=== PATIENT | female | born 1990 ===

== ENCOUNTER 2021-08-26 08:59 | Emergency (ER) | payer OTHER ==
[2021-08-26 11:28] LABS: RED BLOOD COUNT 4.98 M/UL (4.00-5.10); WHITE BLOOD COUNT 10.2 K/UL (4.5-11.0)
[2021-08-26 11:56] LABS: BUN/CREATININE RATIO 9 (0-10)
[2021-08-26] MEDS ORDERED: ZOFRAN ODT 4 MG4 MG SL (12:23)
== END 2021-08-26 12:33 | disposition home or self-care (01) ==
LOC: ER1 08:59
PROVIDERS: Emergency Medicine
DX: R11.10 Vomiting, unspecified (principal); R19.7 Diarrhea, unspecified; Z86.19 Personal history of other infectious and parasitic diseases; F17.200 Nicotine dependence, unspecified, uncomplicated; Z20.822 Contact with and (suspected) exposure to COVID-19
CPT/HCPCS: 80053; 85025; 99284; U0002